=== PATIENT | female | born 1960 | race Caucasian/White ===

== ENCOUNTER 2017-03-12 08:43 | Emergency (ER) | payer BC ==
[2017-03-12] MEDS ORDERED: NORMAL SALINE 1,000 ML IV ONE (09:01)
[2017-03-12] MEDS ORDERED: KETOROLAC TROMETHAMINE 30 MG/ML VIAL IV ONE (09:01)
[2017-03-12] MEDS ORDERED: DIATRIZOATE MEGLUMINE, SODIUM 30 ML BTL ONE (09:08)
--- NOTE | 2017-03-12 09:12 | ERNOTE ---
Abdominal HPI - General Chief Complaint: Abdominal Pain Time Seen by Provider: 03/12/17 08:55 Source: patient Exam Limitations: no limitations - Immun/Allergies/Home Medications Immunizatons: IMMUNIZATION HX Immunizations Up to Date Yes History of Influenza Vaccine No Hx Pneumococcal Vaccination No Allergies/Adverse Reactions: Allergies No Known Allergies Allergy (Verified 03/12/17 08:52) Home Medications: HOME MEDICATIONS Buspirone HCl 10 mg PO BID 03/12/17 [Last Taken Unknown] Ciprofloxacin HCl [Cipro] 500 mg PO BID #20 tab 03/12/17 [Last Taken Unknown] Ketorolac Tromethamine [Toradol] 10 mg PO Q6H PRN #20 tab 03/12/17 [Last Taken Unknown] Meloxicam 7.5 mg PO DAILY 03/12/17 [Last Taken Unknown] Tamsulosin HCl [Flomax] 0.4 mg PO DAILY@1800 #7 capsule 03/12/17 [Last Taken Unknown] Tramadol HCl [Rybix Odt] 50 mg PO DAILY 03/12/17 [Last Taken Unknown] Venlafaxine HCl [Effexor Xr] 150 mg PO DAILY 03/12/17 [Last Taken Unknown] - History of Present Illness Narrative: Patient woke this morning with right flank pain that radiates down into the lower abdomen. She describes her pain as at least moderate in severity and somewhat crampy in nature. Timing: constant Quality: moderate, cramping Activities at Onset: none Associated Symptoms: Present: denies symptoms Prior Abdominal Problems: Present: none Review of Systems - Review of Systems Constitutional: Present: See HPI EYE: Present: no symptoms reported ENT: Present: no symptoms reported Respiratory: Present: no symptoms reported Cardiology: Present: no symptoms reported Gastrointestinal/Abdominal: Present: abdominal pain Genitourinary: Present: other - right flank pain Musculoskeletal: Present: no symptoms reported Skin: Present: no symptoms reported Neurological: Present: no symptoms reported Endocrine: Present: no symptoms reported Hematologic/Lymphatic: Present: no symptoms reported Psych: Present: no symptoms reported - Patient's Past Medical History Patient History - Medical: Chronic Pain, Depression Patient History - Cardiac/Respiratory: No pertinent hx Patient History - Cancer: No Hx of Cancer Patient History - Surgical Procedures: Tubal Ligation, Orthopedic Patient History - Other: None LMP (females 10-50): Menopausal - Social History Living Situations: home Abuse History: No History of abuse Psych History: Hx of Depression, Current tx/ever been on anti-depressants or anti-anxiety meds Smoking Status: Never smoker Alcohol Use: none Drug Use: none - Immunizations Immunizations Up to Date: Yes Hx Pneumococcal Vaccination: No History of Influenza Vaccine: No Physical Exam - Physical Exam General Appearance: Present: wd/wn, alert, moderate distress Head Exam: Present: normal inspection Eye Exam: Normal inspection: bilateral, PERRL: bilateral Ears, Nose, Throat: Present: normal ENT inspection, H, normal pharynx Neck: Present: normal inspection, nontender Respiratory: Present: no respiratory distress, normal breath sounds, no accessory muscle use, chest nontender, lungs clear Cardiovascular/Chest: Present: regular rate, rhythm, no murmur, normal peripheral pulses Gastrointestinal/Abdominal: Present: normal bowel sounds, nondistended, soft, no organomegaly, tenderness - all the patient has some abdominal pain she has no definitive pain over McBurney's point Rectal Exam: Present: deferred Back Exam: Present: normal range of motion, CVA tenderness (R) Extremity Exam: Present: normal inspection, non-tender, no edema, normal range of motion Neurological Exam: Present: alert, oriented, normal mood/affect Skin Exam: Present: normal color, warm/dry Lymphatic Exam: Present: no adenopathy ED Progress - Results and Orders Patient's Lab Results:: I have reviewed the patient's lab results. - Vital Signs Patient's Vital Signs:: I have reviewed the patient's vital signs. Vital Signs: Vital Signs 03/12/17 08:47 Temperature 36.8 C Pulse Rate 88 Respiratory 16 Rate Blood Pressure 140/83 O2 Sat by Pulse 95 Oximetry - CT/Ultrasound CT/Ultrasound Narrative: CT the abdomen and pelvis was reviewed. - Progress/Reassessment Chief Complaint: Abdominal Pain Progress:: Improved Plan - Plan Plan: Patient was given 30 mg of Toradol IV and all the pain stopped. While the patient certainly has a 4 mm kidney stone, which should pass with Flomax, she also has an infection which may reveal a component of a pyelonephritis. Patient was given 0.4 mg of Flomax and 1 g of Rocephin IV. A page was put out for Dr. Emanuel's I believe the patient is going to need a urology referral. Patient will be sent home on oral antibiotics, Flomax and the caveat to call Dr. Emanuel's office in the morning. She will also be given pain medicine and as the Toradol worked as well as a did I will give her prescription for oral Toradol. Departure - Departure Clinical Impression: Kidney stone on right side UTI (urinary tract infection) Qualifiers: Urinary tract infection type: acute cystitis Hematuria presence: with hematuria Qualified Code(s): N30.01 - Acute cystitis with hematuria Disposition: Home self-care Condition: Good Additional Instructions: Call Dr. Emanuel in the morning for an appt. Referrals: Davide Maki MD [Primary Care Provider] - Jeremie Emanuel MD [Associate] - Prescriptions: Ciprofloxacin HCl [Cipro] 500 mg PO BID #20 tab Ketorolac Tromethamine [Toradol] 10 mg PO Q6H PRN #20 tab PRN Reason: Pain Tamsulosin HCl [Flomax] 0.4 mg PO DAILY@1800 #7 capsule
[2017-03-12 09:16] LABS: Hematocrit 37.2 % (37.0-47.0); Hemoglobin 12.6 gm/dL (12.5-16.0); Mean Cell Volume 84.4 fl (78-100); Mean Corpuscular Hemoglobin 28.6 pg (27-31); Mean Corpuscular Hgb Conc 33.9 g/dl (32-36); Mean Platelet Volume 9.6 fl (6.0-9.5); Neutrophil # 16.2 K/mm3 (1.3-6.0); Neutrophil % 89.6 % (42-75.0); Platelet Count 398 K/mm3 (150-450); Red Blood Count 4.41 M/mm3 (4.2-5.4); Red Cell Distribution Width 12.5 % (11.5-14.0); White Blood Count 18.1 K/mm3 (4.0-10.5)
[2017-03-12] MEDS ORDERED: DIATRIZOATE MEGLUMINE, SODIUM 30 ML BTL PO ONE (09:17)
[2017-03-12] MEDS ORDERED: KETOROLAC TROMETHAMINE 30 MG/ML VIAL ONE (09:18)
[2017-03-12] MEDS ORDERED: ONDANSETRON HCL/PF 2 MG/ML VIAL ONE (09:18)
[2017-03-12] MEDS ORDERED: ONDANSETRON HCL/PF 2 MG/ML VIAL IV ONE (09:18)
[2017-03-12 09:28] LABS: Albumin * 3.9 gm/dl (3.4-5.0); BUN/Creatinine Ratio 19.1 (9.0-21.6); Bilirubin, Total 0.3 mg/dL (0.0-1.1); Ca. Corrected For Albumin 9.1 mg/dL (8.4-10.2); Calcium * 9.3 mg/dL (7.9-10.9); Magnesium 1.6 mg/dL (1.2-2.8); Potassium 4.2 mmol/L (3.4-4.6); Total Protein 8.1 gm/dL (6.2-8.2)
[2017-03-12 09:33] LABS: Anion Gap 16.2 mmol/L (6.8-13.8)
[2017-03-12 09:38] LABS: Urine Bilirubin Negative (NEGATIVE); Urine Blood 250 /ul (NEGATIVE); Urine Ketone 15 mg/dL (NEGATIVE); Urine Nitrite Negative (NEGATIVE); Urine Protein 15 mg/dL (NEGATIVE); Urine Specific Gravity >=1.030 SP.GR. (1.005-1.010); Urine Urobilinogen Normal (NORMAL)
[2017-03-12 09:45] LABS: Urine Appearance Slightly Cloudy; Urine Bacteria 2+; Urine Color Yellow
[2017-03-12] MEDS ORDERED: TAMSULOSIN HCL 0.4 MG CAP.SR.24H PO ONE ×2 (11:42→11:57)
[2017-03-12 12:30] VITALS: BP 118/67
== END 2017-03-12 13:05 | disposition home or self-care (01) ==
LOC: ER 08:43
DX: N20.0 Calculus of kidney (principal); N30.01 Acute cystitis with hematuria
CPT/HCPCS: 36415; 74177; 80053; 81001; 83735; 85025; 87077; 87086; 87186; 96365; 96375; 99284; J2405

== ENCOUNTER 2017-03-17 06:27 | Day surgery (SDC) | payer BC ==
[~2017-03-17 06:27] MED LIST: ACETAMINOPHEN WITH CODEINE 1 EACH TABLET PO PRN; GENTAMICIN SULFATE 80 MG in DEXTROSE 5 % IN WATER 100 ML IV PRN; KETOROLAC TROMETHAMINE 15 MG/ML VIAL IV PRN; NORMAL SALINE 1,000 ML IV PRN; ONDANSETRON HCL/PF 2 MG/ML VIAL IV PRN; OXYBUTYNIN CHLORIDE 5 MG TABLET PO PRN
[2017-03-17] MEDS ORDERED: NORMAL SALINE 1,000 ML IV ONE (07:05)
[2017-03-17] MEDS ORDERED: RINGER'S SOLUTION,LACTATED 1,000 ML IV ONE (08:35)
[2017-03-17] MEDS: oxyCODONE HCL/ACETAMINOPHEN 1 TAB TABLET PO PRN ×2 (09:33→10:16)
[2017-03-17 10:45] VITALS: BP 110/61
== END 2017-03-17 06:28 | disposition home or self-care (01) ==
LOC: AMB 06:27
PROVIDERS: ATTEND Urology
PROC: 0T768DZ Dilation of Right Ureter with Intraluminal Device, Via Natural or Artificial Opening Endoscopic (ICD-10-PCS; 2017-03-17)
PROC: 0TF38ZZ Fragmentation in Right Kidney Pelvis, Via Natural or Artificial Opening Endoscopic (ICD-10-PCS; principal; 2017-03-17 08:05)
DX: N20.0 Calculus of kidney (principal); N20.1 Calculus of ureter; N39.0 Urinary tract infection, site not specified; Z68.25 Body mass index [BMI] 25.0-25.9, adult; Z87.891 Personal history of nicotine dependence